=== PATIENT | female | born 1970 | race Caucasian/White ===

== ENCOUNTER → 2016-04-05 19:36 | Outpatient (CLI) | payer OTHER | END | disposition home or self-care (01) | LOC: D.SLEEP 19:36 | DX: G47.33 Obstructive sleep apnea (adult) (pediatric) (principal) ==

== ENCOUNTER → 2017-06-21 07:41 | Outpatient (CLI) | payer OTHER | END | disposition home or self-care (01) | LOC: D.MRI 07:41 | DX: M25.562 Pain in left knee (principal) ==